=== PATIENT | female | born 1985 | race Caucasian/White ===

== ENCOUNTER → 2016-11-17 | Outpatient (CLI) | payer OTHER ==
[~2016-11-17] MED LIST: IBUPROFEN600 MG PO; NORCO 5-325 TA1 EACH PO; PRILOSEC OTC20 MG PO; PROZAC40 MG PO; REMERON30 MG PO; ZYRTEC10 MG PO
[2016-11-17 09:22] LABS: HEMOGLOBIN 14.4 gm/dl (12.3-15.3); RED BLOOD COUNT 4.83 M/UL (4.00-5.10); WHITE BLOOD COUNT 9.1 K/UL (4.5-11.0)
== END ==
LOC: OPSV2 08:00
PROVIDERS: Obstetrics & Gynecology
DX: Z01.812 Encounter for preprocedural laboratory examination (principal); R10.2 Pelvic and perineal pain
CPT/HCPCS: 36415; 81001; 85025

== ENCOUNTER → 2016-11-29 | Day surgery (SDC) | payer OTHER | END | disposition home or self-care (01) | LOC: OR 07:30 | PROVIDERS: Obstetrics & Gynecology | PROC: 0WBH4ZZ Excision of Retroperitoneum, Percutaneous Endoscopic Approach (ICD-10-PCS; principal; 2016-11-29 10:45) | DX: N80.3 Endometriosis of pelvic peritoneum (principal); R10.2 Pelvic and perineal pain; F17.210 Nicotine dependence, cigarettes, uncomplicated; Z79.899 Other long term (current) drug therapy; Z86.69 Personal history of other diseases of the nervous system and sense organs; Z87.19 Personal history of other diseases of the digestive system | CPT/HCPCS: 84703; J1200; J2250; J2405; J2710; J2765; J2795; J3010; J7120 ==